=== PATIENT | male | born 1980 | race Caucasian/White ===

== ENCOUNTER 2021-01-12 09:28 | Inpatient (IN) | payer OTHER ==
[~2021-01-12] VITALS: Ht 185.4 cm; Wt 108.0 kg
[2021-01-12 09:50] LABS: HEMOGLOBIN 18.5 gm/dl (14.0-17.5); RED BLOOD COUNT 5.89 M/UL (4.20-5.50); WHITE BLOOD COUNT 11.7 K/UL (4.5-11.0)
[2021-01-12 10:36] LABS: BUN/CREATININE RATIO 22 (0-10)
[2021-01-12] MEDS ORDERED: GLUCOPHAGE 850850 MG PO (11:17)
[2021-01-12] MEDS ORDERED: HUMALOG100 UNIT/1 SQ (11:17)
[2021-01-12] MEDS ORDERED: ZOLOFT25 MG PO (11:18)
[2021-01-12] MEDS ORDERED: LIPITOR20 MG PO (11:18)
[2021-01-12] MEDS ORDERED: FISH OIL 1,0001 EACH PO (11:18)
[2021-01-12] MEDS ORDERED: BUSPIRONE HCL7.5 MG PO (11:19)
[2021-01-12] MEDS ORDERED: TYLENOL EXTRA500 MG PO (11:19)
[2021-01-12] MEDS ORDERED: CLARITIN10 MG PO (11:20)
[2021-01-12] MEDS ORDERED: BASAGLAR K100 UNIT/1 SC (11:20)
[2021-01-13 03:32] LABS: HEMOGLOBIN 16.7 gm/dl (14.0-17.5); RED BLOOD COUNT 5.37 M/UL (4.20-5.50); WHITE BLOOD COUNT 12.2 K/UL (4.5-11.0)
[2021-01-13 04:17] LABS: BUN/CREATININE RATIO 22 (0-10)
[2021-01-14 04:13] LABS: HEMOGLOBIN 17.2 gm/dl (14.0-17.5); RED BLOOD COUNT 5.45 M/UL (4.20-5.50); WHITE BLOOD COUNT 9.4 K/UL (4.5-11.0)
[2021-01-14 04:37] LABS: BUN/CREATININE RATIO 24 (0-10)
[2021-01-14] MEDS ORDERED: HUMALOG100 UNIT/1 SQ (11:25)
[2021-01-14] MEDS ORDERED: LANTUS INS100 UTS/M1 SQ (11:25)
[2021-01-14] MEDS ORDERED: CARVEDILOL3.125 MG PO (11:25)
[2021-01-14] MEDS ORDERED: ASPIRIN EC81 MG PO (11:25)
[2021-01-14] MEDS ORDERED: BRILINTA 90 MG90 MG PO (11:25)
[2021-01-14] MEDS ORDERED: ATORVASTATIN CA20 MG PO (11:26)
== END 2021-01-15 14:16 | DRG 247 ==
LOC: ER1 09:28 → CDU 09:34 → CCU 11:36 → MED SURG 4 01-13 18:32
PROVIDERS: Emergency Medicine; Family Medicine; ADMIT Internal Medicine Interventional Cardiology
PROC: 027035Z Dilation of Coronary Artery, One Artery with Two Drug-eluting Intraluminal Devices, Percutaneous Approach (ICD-10-PCS; principal; 2021-01-12)
PROC: 02C03ZZ Extirpation of Matter from Coronary Artery, One Artery, Percutaneous Approach (ICD-10-PCS; 2021-01-12)
PROC: B2161ZZ Fluoroscopy of Right and Left Heart using Low Osmolar Contrast (ICD-10-PCS; 2021-01-12)
DX: I21.09 ST elevation (STEMI) myocardial infarction involving other coronary artery of anterior wall (principal); I50.20 Unspecified systolic (congestive) heart failure; E78.5 Hyperlipidemia, unspecified; F32.9 Major depressive disorder, single episode, unspecified; F41.9 Anxiety disorder, unspecified; E11.9 Type 2 diabetes mellitus without complications; J30.2 Other seasonal allergic rhinitis; I25.10 Atherosclerotic heart disease of native coronary artery without angina pectoris; Z20.822 Contact with and (suspected) exposure to COVID-19; F10.10 Alcohol abuse, uncomplicated; Z86.73 Personal history of transient ischemic attack (TIA), and cerebral infarction without residual deficits; Z79.4 Long term (current) use of insulin; Z72.0 Tobacco use; Z82.3 Family history of stroke; Z83.3 Family history of diabetes mellitus
CPT/HCPCS: ECHO; 36415; 71045; 80048; 80053; 80061; 82550; 82553; 82962; 83036; 83735; 83874; 84439; 84443; 84484; 85025; 85027; 85347; 85610; 85730; 93005; 93306; 97161; 99285; C1725; C1769; C1874; C1887; J1642; J1644; J3246; J7030; J7040; Q9965; U0002